=== PATIENT | male | born 1945 | race Caucasian/White ===

== ENCOUNTER 2020-09-27 11:01 | Emergency (ER) | payer OTHER, MEDICARE, SELFPAY ==
[2020-09-27 11:02] VITALS: BP 160/123; PULSE 102; RESP 18; TEMP 36.5; O2SAT 97; BMI 31.9
--- NOTE | 2020-09-27 11:38 | CT_ITS ---
STUDY: CT ABDOMEN AND PELVIS WITH CONTRAST REASON FOR EXAM: Male, 75 years old. Abdominal pain . One week history of left groin pain. -- IV PO Contrast RADIATION DOSAGE (If Supplied By Facility): CTDIvol = ( 16.82 ) mGy, DLP = ( 1462.75 ) mGycm TECHNIQUE: Transaxial images were obtained from the dome of the diaphragm to the symphysis pubis with oral contrast. Oral and amp;amp; IV Gastrografin and amp;amp; 100mL Isovue-300 was administered. Sagittal and coronal images were reconstructed. Individualized dose optimization techniques were used for this CT. COMPARISON: None. FINDINGS: Calcified right pleural plaques. There is evidence of a 4.9 cm x 3.5 cm soft tissue mass in the right lower lobe with faint calcifications within it. Mild degree of Coronary artery calcification. There is decreased attenuation of the liver consistent with steatosis. Normal gallbladder and extrahepatic biliary system. Normal spleen. Normal pancreas. Normal bilateral adrenal glands. Normal right kidney. Normal left kidney. Mild degree of nonspecific bilateral perinephric stranding. Normal visualized stomach. Normal small intestine. Normal colon. The appendix is visualized and appears normal. There is diffuse atherosclerotic calcification of the abdominal aorta and its major visceral branches, without a demonstrated aneurysm. Normal inferior vena cava. Normal retroperitoneum. The urinary bladder is distended. There is evidence of a 3.1 cm x 1.9 cm diverticulum along the inferior left side of the urinary bladder. There is a small umbilical hernia containing fat. Small bilateral inguinal hernias containing fat worse on the left side. Mild degree of disc space narrowing at the L5-S1 level. CT/Abdomen/Pelvis WITH Contrast IMPRESSION: Calcified right-sided pleural plaques along the diaphragmatic surface with the findings suggestive of a 4.9 cm x 3.5 cm soft tissue mass in the right lower lobe with calcifications within. Fatty infiltration of the liver. Distended urinary bladder. Left-sided bladder diverticulum measuring 3.1 cm x 1.9 cm. Bilateral inguinal hernias containing fat more prominent on the left side. Electronically Signed: Taran Rodriguez MD at 13:40 EDT , Service support ,
--- NOTE | 2020-09-27 11:39 | ED.RN ---
in today for swelling lt testicle over last week. denies any dysuria or pain.
[2020-09-27 11:59] LABS: Absolute Lymphocyte Count 1.22 X10^3/uL (0.83-4.51); Absolute Neutrophil Count 5.1 X10^3/uL (2.0-7.7); Basophil# 0.04 X10^3/uL; Basophil% 0.6 % (0-1); Eosinophil# 0.11 X10^3/uL; Eosinophils% 1.5 % (0-5); Hematocrit 44.9 % (40-54); Hemoglobin 14.6 g/dL (13.0-16.5); Lymphocyte # 1.22 X10^3/ul (4.0); Mean Corp Hgb Conc 32.5 g/dL (32-36); Mean Corpuscular Hgb 30.5 pg (27.0-32.0); Mean Corpuscular Volume 93.7 fL (80-94); Mean Platelet Vol. 9.2 fl (6.2-12.0); Monocyte# 0.67 X10^3/uL; Monocyte% 9.3 % (0-10); NRBC Flagged by Analyzer 0 % (0-5); Neutrophil # 5.11 X10^3/uL (2.7-7.7); Neutrophil % 71.2 % (47-70); Platelet Count 243 K/mm3 (150-450); RBC Distribution Width CV 12.3 % (11.6-14.6); RBC Distribution Width SD 42.5 fl (35.1-43.9); Red Blood Count 4.79 M/mm3 (4.6-6.2); White Blood Count 7.2 K/mm3 (4.4-11.0)
[2020-09-27 12:03] LABS: ALB/GLOB Ratio 1.1 RATIO (0.9-2.4); AST(SGOT) 13 U/L (15-37); Alanine Aminotransfer ALT/SGPT 25 U/L (16-61); Albumin, Serum 3.9 g/dL (3.2-5.0); Alkaline Phosphatase 80 U/L (45-117); Anion Gap 6 (5-15); BUN 21 mg/dL (7-18); BUN/Creat Ratio 20.4 RATIO (10-20); Chloride 102 mmol/L (98-107); Creatinine, Serum 1.03 mg/dL (0.70-1.30); EST Glomerular Filtration Rate 75 mL/min (>60); Est Glom Filt Rate - Afr Amer 91 mL/min (>60); Estimated Creatinine Clearance 57.94 ml/min; Globulin 3.5 g/dL (2.2-4.2); Glucose 106 mg/dL (74-106); Potassium 3.8 mmol/L (3.5-5.1); Protein, Total 7.4 g/dL (6.4-8.2); Sodium Level 137 mmol/L (136-145)
--- NOTE | 2020-09-27 12:27 | ED.DCSUM_ITS ---
- ER Visit Summary Date of Service: 09/27/20 Chief Complaint: Left inguinal pain History of Present Illness: The patient is a 75 M who presents with pain in his left inguinal area that began yesterday. Patient noted increasing swelling. Patient states he has been told he has a left inguinal hernia in the past. Patient states the swelling became worse last night. Patient states nothing seems to make it worse. Patient states nothing seems to help with it. Patient states his pain is minimal at the present time. Patient denies any fevers or chills. Patient denies any nausea or vomiting. Patient denies any dysuria or hematuria. Physical Examination: Vital signs are stable. Patient is afebrile. Patient is in no acute distress. Oral mucosa is pink and moist. Neck is supple. Trachea is midline. There is no JVD. Heart was regular rate and rhythm. Lungs are clear and equal bilaterally. Abdomen is soft. Bowel sounds are normal. There is no tenderness. There is no rebound or guarding noted. Genitourinary exam shows some mild left inguinal tenderness. I did not appreciate a hernia. There are no other masses noted. Cranial nerves II through XII are intact. There are no focal motor or sensory deficits noted. Test Results: CBC and comprehensive metabolic profile were within normal limits. Urinalysis was normal. CT scan of the abdomen pelvis was obtained. There were bilateral inguinal hernias containing fat. There is no obstruction. There is no acute process. This was interpreted by the radiologist and reviewed by myself. Emergency Department Course and Treatment: Patient is feeling better on reevaluation. Patient was instructed use Tylenol or ibuprofen as needed for pain. Patient was instructed to follow-up with his primary care physician in 5 to 7 days. Patient understood and was agreeable with the plan. All questions were answered. Disposition: Discharge home Impression: Inguinal hernia This note was generated with PositiveID dictation software. It may contain incorrect words, spelling, and punctuation that were not noted in review of the chart prior to signing ED Disposition - Plan for ED Patient: Disposition: Home or Assisted Living Diagnosis: Left inguinal hernia Instructions: ED Hernia (Adult) Referrals: [facility] [Primary Care Provider] - 5-7 Days
[2020-09-27 12:33] LABS: Bacteria 0 SEEN /hpf (None Seen); Mucous, Urine 0 SEEN /hpf (<or=2+); Red Blood Cells-Urine 0 SEEN /hpf (0-5); Squamous Epithelial Cells - UA 0 SEEN /hpf (0-5); White Blood Cells 0 SEEN /hpf (0-5)
[2020-09-27 12:35] LABS: Color, Urine Yellow (Yellow); Glucose, Dipstick Normal (Normal); Ketone-Dipstick Negative (Negative); Leukocyte Esterase-Dipstick Negative /ul (Negative); Nitrite-Dipstick Negative (Negative); Occult Blood-Urine Negative /ul (Negative); Protein-Dipstick Negative (Negative); Urine Bilirubin Dipstick Negative (Negative); Urine Clarity Clear (Clear); Urine Urobilinogen Normal (Normal)
[2020-09-27 13:26] VITALS: BP 149/74; PULSE 74; RESP 18; O2SAT 96
== END 2020-09-27 14:28 | disposition home or self-care (01) ==
PROVIDERS: Emergency Provider Emergency Medicine
DX: K40.90 Unilateral inguinal hernia, without obstruction or gangrene, not specified as recurrent (principal)
CPT/HCPCS: 74177; 80053; 81001; 85025; 99283; Q9967; A4216

== ENCOUNTER → 2020-10-31 14:41 | Outpatient (CLI) | payer OTHER, MEDICARE, SELFPAY ==
--- NOTE | 2020-10-31 14:44 | CT_ITS ---
STUDY: CT CHEST WITHOUT CONTRAST REASON FOR EXAM: Male, 75 years old. ABN FINDINGS NOTED ON CT ABD 08/2020 RADIATION DOSAGE (If Supplied By Facility): CTDIvol = ( 17.80 ) mGy, DLP = ( 595.97 ) mGycm TECHNIQUE: Transaxial imaging was performed without the administration of intravenous contrast material. Individualized dose optimization techniques were used for this CT. COMPARISON: None. FINDINGS: The lungs are normal. Extensive nodular Calcified pleural plaque bilaterally. Calcific coronary artery disease. No pericardial effusion. Normal mediastinum. Normal hilar regions. Normal unenhanced pulmonary arteries. Normal aorta arch and descending thoracic aorta. Mild dextroconvex scoliosis. There is no demonstrated abnormality of the visualized upper abdomen. CT/Chest without Contrast IMPRESSION: Extensive bilateral calcified pleural plaques. Coronary artery disease. No acute disease. Electronically Signed: Homer Connell MD at 17:00 EDT , Service support ,
== END ==
DX: R93.5 Abnormal findings on diagnostic imaging of other abdominal regions, including retroperitoneum (principal)
CPT/HCPCS: 71250

== ENCOUNTER 2022-02-08 09:30 | Day surgery (SDC) | payer OTHER, SELFPAY ==
[2022-02-08 10:08] VITALS: BP 159/78; PULSE 75; RESP 16; TEMP 36.7; O2SAT 96; BMI 30.8
[2022-02-08] MEDS: Lactated Ringers 1,000 ML 15 ML IV (10:12)
--- NOTE | 2022-02-08 10:56 | PCM.HP.BLA ---
History and Physical Date of Service:? 11/21/21 MR#: [id number] Acct: [id number] Name:YESY CRUZ Rep #: [id number] : 1945 ? ? Provider: Dr. Tyler Bowman MD Age/Sex:? 76/M ? ? Location: [facility] Status: Signed Intake Vital Signs ? 11/21/2212:44 Height 5 ft 7 in Weight: 211 lb 6 oz BMI 33.0 BP 162/77 H Blood Pressure Location Rt brachial Position Sitting Respiration 17 Pulse 77 Pulse Source Monitor Temp 98.7 F Temp Source Temporal Pulse Oximetry (%) 96 Oxygen Delivery Method room air Intake Visit Reasons:?COLONOSCOPY Chief Complaint: colonoscopy Bicycle Mechanic Required: No Is patient in pain?: No Allergies aspirin Allergy (Verified 11/21/21 13:45) Rashchlorhexidine [From Hibiclens] Adverse Reaction (Verified 11/21/21 13:45) Rashoxycodone [From OxyContin] Adverse Reaction (Verified 11/21/21 13:45) Other Medications tamsulosin 0.4 mg PO DAILY 03/29/16 [History Confirmed 11/21/21] trazodone 200 mg PO QHS 09/27/20 [History Confirmed 11/21/21] amlodipine 5 mg tablet 5 mg PO BID 11/21/21 [History Confirmed 11/21/21] fluticasone propionate 50 mcg/actuation nasal spray,suspension 1 spray INTRANASAL DAILY 11/21/21 [History Confirmed 11/21/21] multivitamin 1 tab PO DAILY 11/21/21 [History Confirmed 11/21/21] PFSH Surgical History?(Updated 11/21/21 @ 13:43 by Saturday) History of left knee replacement History of left knee surgery Family History?(Updated 11/21/21 @ 13:44 by Saturday) Sister Cancer ?? ? leukemiaUncle Cancer ?? ? prostateUnknown CVA (cerebral vascular accident) ?? ? nephew Social History?(Updated 11/21/21 @ 13:44 by Emili Saturday) Smoking Status:? Never smoker alcohol intake:? never substance use type:? does not use HPI HPI HPI: YESY CORDOBA is a 76 M who presents to the office today for need to schedule screening colonoscopy.? They are referred for surgical consultation from the [place] system.? Patient has not had prior colonoscopy.? Patient states he had been asked so many times about a colonoscopy, he finally decided to agree to an exam.? Patient has no personal history of diverticulitis, inflammatory bowel disease, or colon cancer. They describe their bowel habits as normal.? They have approximately 1 (usually soft) bowel movement per day and spend just a few minutes on the toilet without significant straining.? They have not noticed recent bleeding or dark stools.? They do not regularly take fiber supplements.? Patient has no family history of inflammatory bowel disease, diverticulitis, or colon cancer.? ? ? The patient's weight is not stable as he rather proudly reports that he has lost 17 pounds through intentional dietary restriction. Patient describes some recent left lower quadrant pain, but states this was self-limited.? He suspects that this represented more of a pulled muscle.? He has been recently restoring a old vehicle and states that he is now using muscles that he has not used in many years. The patient is not prescribed anticoagulants/blood thinners. Relevant prior abdominal surgical history includes: No prior abdominal surgeries Further concerning the GI tract, patient states he did have an EGD 2 to 3 years ago and work-up for some allergy symptoms.? He was told at that time that everything was normal.? He denies any history of reflux or heartburn.? He confirms some occasional difficulty with swallowing?which she states is specifically related to sticky rice that will occasionally get stuck from eating too fast.? Otherwise he is without swallowing complaint. ROS General General: Yes weight change and fatigue; No appetite, colon cancer, breast cancer or weakness HEENT HEENT: No difficulty swallowing, eye injury, eye surgery, swollen glands or hoarseness Endo Endocrine: No thyroid disease, diabetes mellitus, thyroid cancer, Hair loss, heat intolerance or cold intolerance Skin Skin: No rash or changing moles Musc Musculoskeletal: Yes back problems and arthritis; No rheumatoid arthritis, gout or joint pain Cardio Cardiovascular: Yes high blood pressure; No murmur, pacemaker, heart disease, atrial fibrillation, heart attack, heart stent, palpitations, shortness of breat with exertion or chest pain Psych Psychiatric: Yes depression; No anxiety or hearing voices Resp Respiratory: No shortness of breath, Yes sleep apnea, No cough, No COPD, No asthma, No emphysema and No wheezing Gastro Gastrointestinal: Yes abdominal pain, No nausea or vomiting, No diarrhea, No constipation, No blood in stool, No acid reflux, No hemorrhoids, No ulcers, No gallbladder problem and No black,tarry stools Additional Details: LLQ two weeks ago after working on a car, states has resolved Fredy Hematologic: No blood thinners, No blood disorders, No bleeding, No anemia and No blood clots Neuro Neurologic: No system reviewed and no additional complaints, except as documented, No as per HPI, No abnormal gait, No abnormal hearing, No abnormal movements, No abnormal speech, No behavioral changes, No burning sensations, No confusion, No convulsions, No disequilibrium, No dizziness, No localized weakness, No frequent falls, No headache(s), No lack of coordination, No loss of vision, No memory loss, No numbness, No other visual disturbances, No radicular pain, No restless legs, No sensory deficit, No syncope, Yes tingling (bilateral feet), No tremor(s), No weakness and No other Exam Const General: cooperative, healthy appearing, comfortable and no acute distress Orientation: alert, awake and oriented x3 Resp Effort & Inspection: normal respiratory effort Auscultation: no rales, no rhonchi and no wheezes Cardio Rate: regular rate Rhythm: regular rhythm Heart Sounds: S1 normal and S2 normal GI Other: Nondistended, no scars.? Soft, nontender to palpation x4 quadrants.? Umbilical hernia visible and palpable with estimated 1.5 cm fascial defect.? This is nontender with palpation as well Assessment and Plan Assessment and Plan (1) Screening for colon cancer: ?Status:?Acute ?Comment: This is a 76-year-old male who presents for screening colonoscopy consultation.? He denies any concerning features of his regular bowel movements.? He denies any family history of colon cancer.? He simply seeks evaluation given repeated advice to consider a scope.? The expectations around the procedure and pre-? procedure colon were reviewed. ?Plan - Dr. Tyler Bowman MD: Plan will be to complete colonoscopy sometime next month (patient states that he is very limited availability this month) under local [facility].? Pre-procedure prep discussed and paper instructions provided.? Patient is also made aware that he will need to have a commercial driver's license driver with him the day of the procedure. I have re-examined the patient. There are no clinical changes since date of exam. Patient confirms successful prep for this colonoscopy and that his output is now clear. He denies any questions, but states that he is a bit nervous for the procedure. We addressed this directly and he states that he is ready to proceed as scheduled.
[2022-02-08 11:58] VITALS: BP 145/81; BP 159/78; PULSE 78; RESP 16; TEMP 36.5; O2SAT 100
--- NOTE | 2022-02-08 12:00 | OP.COLON_ITS ---
Patient Name: Elvin Wynn Procedure Date: 02/08/2022 11:00 AM Date of : 1945 Age: 76 Procedure: Colonoscopy Indications: Screening for colorectal malignant neoplasm Providers: Tyler Bowman MD Medicines: Monitored Anesthesia Care, See the Anesthesia note for documentation of the administered medications Patient Profile: Last Colonoscopy: none. The patient's first colonoscopy is today. Complications: No immediate complications. Estimated blood loss: None. Procedure: Pre-Anesthesia Assessment: - The heart rate, respiratory rate, oxygen saturations, blood pressure, adequacy of pulmonary ventilation, and response to care were monitored throughout the procedure. After I obtained informed consent, the scope was passed under direct vision. Throughout the procedure, the patient's blood pressure, pulse, and oxygen saturations were monitored continuously. The pediatric colonoscope was introduced through the anus and advanced to the cecum, identified by appendiceal orifice and ileocecal valve. The colonoscopy was technically difficult and complex. Successful completion of the procedure was aided by using manual pressure and withdrawing and reinserting the scope. The patient tolerated the procedure well. The quality of the bowel preparation was adequate to identify polyps. Scope In: 11:04:51 AM Scope Withdrawal Time 0 hours 38 minutes 45 seconds Scope Out: 11:52:42 AM Total Procedure Duration Time 0 hours 47 minutes 51 seconds Findings: The entire examined colon appeared normal on direct and retroflexion views. Impression: - The entire examined colon is normal on direct and retroflexion views. - No specimens collected. Recommendation: - Discharge patient to home (via wheelchair). - Resume regular diet today. - Continue present medications. - The findings and recommendations were discussed with the designated responsible adult. - No repeat colonoscopy due to age. Procedure Code(s): --- Professional --- G0121, Colorectal cancer screening; colonoscopy on individual not meeting criteria for high risk Diagnosis Code(s): --- Professional --- Z12.11, Encounter for screening for malignant neoplasm of colon CPT copyright 2017 [employer]. All rights reserved. The codes documented in this report are preliminary and upon box closing machine operator review may be revised to meet current compliance requirements. Tyler Bowman MD 02/08/2022 12:00:21 PM This report has been signed electronically. Number of Addenda: 0 Note Initiated On: 02/08/2022 11:00 AM
--- NOTE | 2022-02-08 12:00 | OP.CCLET_ITS ---
02/08/2022 [facility] Re : Colonoscopy procedure for Elvin [facility] This procedure was performed on January. My impressions and recommendations are as follows: Impressions : - The entire examined colon is normal on direct and retroflexion views. - No specimens collected. Recommendations : - Discharge patient to home (via wheelchair). - Resume regular diet today. - Continue present medications. - The findings and recommendations were discussed with the designated responsible adult. - No repeat colonoscopy due to age. My findings are described in the full procedure note, which is enclosed. If I can be of further assistance, please feel free to contact me at Doctor phone number(s): , Work: . Sincerely, Tyler Bowman MD 02/08/2022 12:00:21 PM This report has been signed electronically.
[2022-02-08 12:05] VITALS: BP 146/82; BP 159/78; PULSE 77; RESP 16; O2SAT 100
[2022-02-08 12:10] VITALS: BP 146/72; BP 159/78; PULSE 74; RESP 16; O2SAT 100
[2022-02-08 12:14] VITALS: BP 145/83; BP 159/78; PULSE 63; RESP 16; TEMP 36.5; O2SAT 100
[2022-02-08 12:26] VITALS: BP 159/78
== END 2022-02-08 12:38 | disposition home or self-care (01) ==
LOC: EN 09:31 → AC 09:41
PROVIDERS: Visit Provider Surgery
PROC: 0DJD8ZZ Inspection of Lower Intestinal Tract, Via Natural or Artificial Opening Endoscopic (ICD-10-PCS; CPT 45378; principal; 2022-02-08 10:55)
DX: Z12.11 Encounter for screening for malignant neoplasm of colon (principal); I10 Essential (primary) hypertension; G47.30 Sleep apnea, unspecified; Z79.899 Other long term (current) drug therapy; Z96.652 Presence of left artificial knee joint
CPT/HCPCS: G0121; J7120; J2405

== ENCOUNTER 2022-05-26 18:18 | Emergency (ER) | payer OTHER, SELFPAY ==
[2022-05-26 18:19] VITALS: BP 154/85; PULSE 99; RESP 17; TEMP 38.4; O2SAT 96; BMI 32.2
--- NOTE | 2022-05-26 19:54 | ED.RN ---
PT LWBS AT 1953.
== END 2022-05-26 19:54 | disposition left against medical advice (07) ==
LOC: ED 19:57
DX: Z53.21 Procedure and treatment not carried out due to patient leaving prior to being seen by health care provider (principal)

== ENCOUNTER 2024-08-04 14:11 | Emergency (ER) | payer OTHER, SELFPAY ==
[2024-08-04 14:12] VITALS: BP 154/82; PULSE 89; RESP 18; TEMP 37.4; O2SAT 92; BMI 32.2
[2024-08-04 15:15] VITALS: BP 147/87; PULSE 69; RESP 18; TEMP 36.8; O2SAT 98
[2024-08-04 15:23] VITALS: O2SAT 97
--- NOTE | 2024-08-04 15:51 | ED.VIS.DYS ---
HPI History of Present Illness Chief Complaint: Cough Narrative Narrative: Chief complaint and HPI: Cough and flulike symptoms. 78-year-old male with past medical history of HTN, KEITH presents for evaluation of cough and flulike symptoms. Patient endorses fever, cough, headache, nausea, nasal congestion, and intermittent lightheadedness. Onset of symptoms Saturday. Significant other has similar symptoms but is improving. Patient endorses decreased p.o. intake since start of symptoms. Denies any chest pain, shortness of breath, abdominal pain, vomiting, diarrhea. Review of systems: See HPI Medications: As listed on the chart Allergies: As listed on the chart PFSH: Per chart Vital signs: As listed on the chart. Reviewed. Physical exam: Gen: A&O x3, NAD Head: Normocephalic, atraumatic Eyes: No sclera icterus, conjunctiva clear, PERRL, EOMI ENT: TMs clear BL, mildly dry mucous membranes, posterior oropharynx unremarkable, uvula midline, tonsils not enlarged, no tonsillar exudates Neck: Trachea midline, No JVD, Full ROM, No meningismus CV: RRR, no murmurs, no peripheral edema Resp: Lungs CTA BL, no w/r/c, + dry cough GI: Abd soft, non-distended, non-tender, no r/r/g Musc: Full ROM, no deformity Skin: Warm, dry, no rash Neuro: Alert, oriented, grossly intact, sensation intact Psych: Cooperative, appropriate mood and affect [facility] Medical History (Updated 08/04/24 @ 17:[address] Anam Bower, DO) Wears glasses Loose, teeth PTSD (post-traumatic stress disorder) Depression Arthritis Restless legs Back pain Sleep apnea Hypertension Home Medications ?Medication ?Instructions ?Recorded ?Last Taken ?Type tamsulosin 0.4 mg capsule 0.4 mg PO DAILY 03/29/16 Unknown History trazodone 100 mg tablet 200 mg PO QHS 09/27/20 Unknown History amlodipine 5 mg tablet 5 mg PO BID 11/21/21 Unknown History fluticasone propionate 50 1 spray intranasal DAILY 11/21/21 Unknown History mcg/actuation nasal spray,suspension (Allergy Relief (fluticasone)) multivitamin 1 tab PO DAILY 11/21/21 Unknown History benzonatate 100 mg capsule 100 mg PO TID PRN cough 5 days #15 08/04/24 Unknown Rx caps Allergy/AdvReac Type Severity Reaction Status Date / Time aspirin Allergy Rash Verified 08/04/24 14:12 chlorhexidine (From AdvReac Rash Verified 08/04/24 14:12 Hibiclens) oxycodone (From OxyContin) AdvReac Other Verified 08/04/24 14:12 Family History (Updated 11/21/21 @ 13:44 by Emili Saturday) Sister Cancer leukemia Uncle Cancer prostate Unknown CVA (cerebral vascular accident) nephew Surgical History History of left knee surgery History of left knee replacement Social History (Updated 11/21/21 @ 13:44 by Emili Saturday) Smoking Status: Never smoker alcohol intake: never substance use type: does not use EXAM Physical Exam Const Vital Signs: 08/04/24 14:12 08/04/24 15:15 08/04/24 15:23 Temperature 99.4 F H 98.3 F Temperature Source Oral Oral Pulse Rate 89 69 Respiratory Rate 18 18 Respiratory Effort Normal Respiratory Depth Normal Respiratory Pattern Normal Blood Pressure 154/82 H 147/87 H Blood Pressure Mean 106 107 Pulse Ox 92 98 Oxygen Delivery Method Room Air Room Air Room Air 08/04/24 16:11 08/04/24 17:43 Temperature 98.2 F Temperature Source Pulse Rate 68 67 Respiratory Rate 18 18 Respiratory Effort Respiratory Depth Respiratory Pattern Blood Pressure 141/89 H Blood Pressure Mean 106 Pulse Ox 97 99 Oxygen Delivery Method MDM MDM MDM Narrative Medical decision making narrative: 78-year-old male with past medical history of HTN, KEITH presents for evaluation of cough and flulike symptoms. Differential diagnosis includes but is not limited to influenza, COVID-19, RSV, other viral illness, pneumonia, electrolyte abnormality. NS bolus, Zofran, Tylenol ordered for symptoms. Laboratory workup ordered including chest x-ray. CBC without leukocytosis or anemia. BMP without any significant electrolyte abnormality or KIP. Patient caught positive for COVID-19 infection. Chest x-ray was personally reviewed by in, ED physician. Chest x-ray consistent with COVID-19 infection. Patient was updated of all his results. His vitals have remained stable. His temperature is improved with Tylenol. He is not hypoxic or in any respiratory distress. Patient was given education on COVID-19. OTC medications for symptom control. Follow-up with PCP. Return precautions explained. Impression: 1. COVID-19 infection Lab Data Labs: Laboratory Results - last 24 hr 08/04/24 15:55 WBC 9.1 RBC 4.54 L Hgb 13.7 Hct 42.4 MCV 93.4 MCH 30.2 MCHC 32.3 RDW Std Deviation 43.4 RDW Coeff of Jemma 12.7 Plt Count 224 MPV 9.1 Immature Gran % (Auto) 0.600 Neut % (Auto) 73.1 H Lymph % (Auto) 8.0 L [place] % (Auto) 17.8 H Eos % (Auto) 0.2 Baso % (Auto) 0.3 Absolute Neuts (auto) 6.6 Absolute Lymphs (auto) 0.72 L Nucleated RBC % 0 Differential Comment SCANNED Sodium 135 L Potassium 3.7 Chloride 100 Carbon Dioxide 30.0 Anion Gap 5 BUN 18 Creatinine 1.02 Estim Creat Clear Calc 65.04 Est GFR (MDRD) Af Amer 91 Est GFR (MDRD) Non-Af 75 BUN/Creatinine Ratio 17.6 Glucose 107 H Calcium 8.9 Radiography Diagnostic Testing: Clinical Impression(s) from Imaging Studies Chest X-Ray 08/04/24 16:05 IMPRESSION: Bibasilar infiltrate versus atelectasis. Calcifications which may represent prior spaces exposure. The lungs are hyperaerated which may represent COPD. Reading Location: [facility] Discharge Plan Triage Chief Complaint: Cough ED Provider: Anam Bower Dx/Rx/DC Orders Clinical Impression: COVID-19 Instructions: Coronavirus Disease 2019 (COVID-19): Caring for Yourself or Others, COVID-19 and the Flu: What's the Difference? Prescriptions: New benzonatate 100 mg capsule 100 mg PO TID PRN (Reason: cough) 5 Days Qty: 15 0RF No Action amlodipine 5 mg tablet 5 mg PO BID fluticasone propionate [Allergy Relief (fluticasone)] 50 mcg/actuation spray,suspension 1 spray intranasal DAILY Rx Instructions: administer into each nostril multivitamin Tablet 1 tab PO DAILY tamsulosin 0.4 MG capsule 0.4 mg PO DAILY Patient Comments: prostate/urine flow trazodone 100 MG tablet 200 mg PO QHS Primary Care Provider: [facility] Referrals: [facility] [Primary Care Provider] - 3-5 Days Activity Restrictions/Additional Instructions: Return back to the ED if symptoms change or worsen. Print Language: Tamazight Disposition Disposition: Home, Self Care Discharge Date/Time: 08/04/24 17:44
[2024-08-04] MEDS: Ondansetron 4 MG/2 ML Vial IV (16:01)
[2024-08-04] MEDS: Acetaminophen 500 MG Tablet 1000 MG PO (16:01)
[2024-08-04] MEDS: 0.9% Normal Saline (1000mL) 1,000 ML 1000 ML IV (16:01)
--- NOTE | 2024-08-04 16:05 | RAD_ITS ---
PROCEDURE: CHEST PA AND LATERAL REASON FOR EXAM: Cough, fever, headache. TECHNIQUE: Two views of the chest. COMPARISON: None. FINDINGS: The cardiac and mediastinal contours are normal. Calcifications overlie the chest may represent prior asbestos exposure. The lungs are hyperaerated but clear. Mild ill-defined opacity overlying the lung bases which may represent infiltrate or atelectasis. RAD/Chest PA and Lateral IMPRESSION: Bibasilar infiltrate versus atelectasis. Calcifications which may represent prior spaces exposure. The lungs are hyperaerated which may represent COPD. Reading Location: [id number]
[2024-08-04 16:07] LABS: Absolute Lymphocyte Count 0.72 X10^3/uL (0.83-4.51); Absolute Neutrophil Count 6.6 X10^3/uL (2.0-7.7); Basophil# 0.03 X10^3/uL; Basophil% 0.3 % (0-1); Eosinophil# 0.02 X10^3/uL; Eosinophils% 0.2 % (0-5); Hematocrit 42.4 % (40-54); Hemoglobin 13.7 g/dL (13.0-16.5); Lymphocyte # 0.72 X10^3/ul (0.83-4.51); Mean Corp Hgb Conc 32.3 g/dL (32-36); Mean Corpuscular Hgb 30.2 pg (27.0-32.0); Mean Corpuscular Volume 93.4 fL (80-94); Mean Platelet Vol. 9.1 fl (6.2-12.0); Monocyte# 1.61 X10^3/uL; Monocyte% 17.8 % (0-10); NRBC Flagged by Analyzer 0 % (0-5); Neutrophil # 6.62 X10^3/uL (2.7-7.7); Neutrophil % 73.1 % (47-70); POSITIVE DIFFERENTIAL YES; Platelet Count 224 K/mm3 (150-450); RBC Distribution Width CV 12.7 % (11.6-14.6); RBC Distribution Width SD 43.4 fl (35.1-43.9); Red Blood Count 4.54 M/mm3 (4.6-6.2); White Blood Count 9.1 K/mm3 (4.4-11.0)
[2024-08-04 16:09] LABS: Differential Indicated SCAN CRITERIA MET
[2024-08-04 16:11] VITALS: PULSE 68; RESP 18; O2SAT 97
[2024-08-04 16:21] LABS: Anion Gap 5 (5-15); BUN 18 mg/dL (7-18); BUN/Creat Ratio 17.6 RATIO (10-20); Calcium,Total 8.9 mg/dL (8.5-10.1); Chloride 100 mmol/L (98-107); Creatinine, Serum 1.02 mg/dL (0.70-1.30); EST Glomerular Filtration Rate 75 mL/min (>60); Est Glom Filt Rate - Afr Amer 91 mL/min (>60); Estimated Creatinine Clearance 65.04 ml/min; Glucose 107 mg/dL (74-106); Potassium 3.7 mmol/L (3.5-5.1); Sodium Level 135 mmol/L (136-145)
[2024-08-04 16:41] LABS: Differential Comment SCANNED
[2024-08-04 17:43] VITALS: BP 141/89; PULSE 67; RESP 18; TEMP 36.8; O2SAT 99
== END 2024-08-04 17:44 | disposition home or self-care (01) ==
PROVIDERS: Emergency Provider Surgery; Visit Provider Surgery
DX: U07.1 COVID-19 (principal); I10 Essential (primary) hypertension; R42 Dizziness and giddiness; G47.33 Obstructive sleep apnea (adult) (pediatric); Z79.899 Other long term (current) drug therapy
CPT/HCPCS: 71046; 80048; 85025; 87631; 96361; 96374; 99284; A4216; J2405

== ENCOUNTER 2025-04-04 12:22 | Emergency (ER) | payer OTHER, SELFPAY ==
[2025-04-04 12:23] VITALS: BP 145/79; PULSE 96; RESP 18; TEMP 36.6; O2SAT 96; BMI 32.4
--- OUTSIDE RECORDS SUMMARY | 2025-04-04 13:00 | XMS RPT_ITS | CCD ---
Author Organization [facility] Care Team Providers Care Sql Analyst Name Role Phone MATHEUS MONZON (SENIOR ENVIRONMENTAL PRACTICE LEADER) Unavailable Unavailable STEPH RUBIN Unavailable [place] Primary Care Provider [place] Referring Provider Unavailable Dr. Tyler Bowman Attending Provider Dr. Tyler Bowman Other Provider [phone] [place] [address] Primary Care Unavailable Anam Bower Attending [facility] Allergies Allergy Classification Reported Allergen(s) Allergy Type Date of Onset Reaction(s) Facility (2 sources) acetaminophen / oxyCODONE; Translations: [OXYCODONE-ACETAMI NOPHEN] Drug Allergy 12-25-2016 [facility] Repository (4 sources) aspirin; Translations: [ASPIRIN] Drug Allergy 12-25-2016 [facility] Repository (2 sources) codeine; Translations: [CODEINE] Drug Allergy 12-25-2016 [facility] Repository (2 sources) oxyCODONE; Translations: [OXYCODONE HCL] Drug Allergy 12-25-2016 [facility] Repository (1 source) Chlorhexidine Drug Allergy 05-26-2022 [facility] Work Phone: (1 source) oxyCODONE Drug Allergy 05-26-2022 Other [facility] Work Phone: (1 source) Chlorhexidine Drug Allergy 08-04-2024 [facility] Repository (1 source) oxyCODONE Drug Allergy 08-04-2024 [facility] Repository Medications Current Medications Medication Drug Class(es) Dates Sig (Normalized) Sig (Original) amLODIPine 5 mg oral tablet (1 source) Dihydropyridine Calcium Channel Nikita Start: 11-21-2021 take 5 mg by mouth twice daily Amlodipine Active 5 MG PO TWICE A DAY November 20, 2021 11:00pm fluticasone propionate 0.05 mg/actuat metered dose nasal spray (1 source) Corticosteroid Start: 11-21-2021 take 1 spray(s) nasal route once daily Fluticasone Propionate (Allergy Relief (Fluticasone)) 50 mcg/actuation spray,suspension Active 1 SPRAY INTRANASAL DAILY November 20, 2021 11:00pm administer into each nostril Multivitamin preparation (1 source) Start: 11-21-2021 take 1 tablet by mouth once daily Multivitamin Active 1 TABLET PO DAILY November 20, 2021 11:00pm tamsulosin hydrochloride 0.4 mg oral capsule (1 source) alpha-Adrenergic Nikita Start: 03-29-2016 take 0.4 mg by mouth once daily Tamsulosin Active 0.4 MG PO DAILY March 28, 2016 11:00pm traZODone hydrochloride 100 mg oral tablet (1 source) Serotonin Reuptake Inhibitor Start: 09-27-2020 take 200 mg by mouth at bedtime Trazodone Active 200 MG PO AT BEDTIME September 26, 2020 11:00pm Completed/Discontinued Medications Medication Drug Class(es) Dates Sig (Normalized) Sig (Original) acetaminophen 325 mg / HYDROcodone bitartrate 5 mg oral tablet (1 source) Opioid Agonist Start: 03-29-2016 End: 04-11-2016 Hydrocodone-Acetam inophen Discontinued 1 EACH PO NEEDED March 28, 2016 11:00pm April 11, 2016 8:45am gabapentin 100 mg oral capsule (1 source) Anti-epileptic Agent Start: 09-27-2020 End: 11-21-2021 take 100 mg by mouth at bedtime Gabapentin Discontinued 100 MG PO AT BEDTIME September 26, 2020 11:00pm November 21, 2021 12:45pm lisinopril 40 mg oral tablet (1 source) Angiotensin Converting Enzyme Inhibitor Start: 05-25-2017 End: 11-21-2021 take 40 mg by mouth once daily Lisinopril Discontinued 40 MG PO DAILY May 25, 2017 12:00am November 21, 2021 12:45pm Problems Active Problems Problem Classification Problem Date Documented Date Episodic/Chronic Abdominal hernia (1 source) Left inguinal hernia ; Translations: [Unilateral inguinal hernia, without obstruction or gangrene, not specified as recurrent] Episodic Essential hypertension (1 source) Hypertensive disorder; Translations: [Essential (primary) hypertension] Chronic Mood disorders (1 source) Depressive disorder; Translations: [Depression] Chronic Osteoarthritis (2 sources) Bilateral primary osteoarthritis of knee; Translations: [Arthritis] Onset: 12-25-2016 Chronic Other nervous system disorders (1 source) Other chronic pain; Translations: [Other chronic pain] Onset: 12-25-2016 Chronic Other screening for suspected conditions (not mental disorders or infectious disease) (1 source) Patient encounter status; Translations: [Encounter for screening for malignant neoplasm of colon] Episodic Residual codes; unclassified (1 source) Sleep apnea; Translations: [Sleep apnea, unspecified] Chronic Unclassified (1 source) Cough, unspecified; Translations: [Cough, unspecified] Onset: 08-19-2024 Past or Other Problems Problem Classification Problem Date Documented Da te Episodic/Chronic Spondylosis; intervertebral disc disorders; other back problems (2 sources) Lumbago with sciatica, right side; Translations: [Lumbago with sciatica, left side] Onset: 12-25-2016 Episodic Results Test Name Value Interpretation Reference Range Facility Basic Metabolic Profile (BMP )on 08-04-2024 BUN/CRE 17.6 RATIO Normal 10-20 [facility] Comment on above: Performed By: #### L100.0100, L500.2500 #### [facility] [address] [place], [address] CA,Total 8.9 mg/dL Normal 8.5-10.1 [facility] Comment on above: Performed By: #### L100.0100, L500.2500 #### [facility] [address] [place], [address] Chloride [Moles/Vol] 100 mmol/L Normal 98-107 [facility] Comment on above: Performed By: #### L100.0100, L500.2500 #### [facility] [address] [place], [address] CO2 [Moles/Vol] 30.0 mmol/L Normal 21.0-32.0 [facility] Comment on above: Performed By: #### L100.0100, L500.2500 #### [facility] [address] [place], [address] Creatinine [Mass/Vol] 1.02 mg/dL Normal 0.70-1.30 [facility] Comment on above: Result Comment: The validity of the calc ulated GFR GFRAA in patients over 70 years has not been determined. Clinical correlation is essential. Performed By: #### L 100.0100, L500.2500 #### [facility] [address] [place], [address] ECRCL 65.04 ml/min Normal [facility] Comment on above: Performed By: #### L100.0100, L500.2500 #### [facility] [address] [place], [address] EST GFR - AA 91 mL/min Normal >60 [facility] Comment on above: Result Comment: GFR Renato c Performed By: #### L 100.0100, L500.2500 #### [facility] [address] [place], [address] GAP 5 Normal 5-15 [facility] Comment on above: Performed By: #### L100.0100, L500.2500 #### [facility] [address] [place], [address] GFR/1.73 sq M.predicted among non-blacks MDRD (S/P/Bld) [Vol rate/Area] 75 mL/min/{1.73_m2} Normal >60 [facility] Comment on above: Result Comment: Non- GFR Calc Performed By: #### L 100.0100, L500.2500 #### [facility] [address] [place], [address] Glucose [Mass/Vol] 107 mg/dL High 74-106 [facility] Comment on above: Result Comment: Fasting Glucose result f rom 100 to 125 mg/dL suggests IMPAIRED HOMEOSTASIS per A.D.A. criteria. Performed By: #### L 100.0100, L500.2500 #### [facility] [address] [place], [address] Potassium [Moles/Vol] 3.7 mmol/L Normal 3.5-5.1 [facility] Comment on above: Performed By: #### L100.0100, L500.2500 #### [facility] [address] [place], [address] Sodium [Moles/Vol] 135 mmol/L Low 136-145 [facility] Comment on above: Performed By: #### L100.0100, L500.2500 #### [facility] [address] [place], [address] Urea nitrogen [Mass/Vol] 18 mg/dL Normal 7-18 [facility] Comment on above: Performed By: #### L100.0100, L500.2500 #### [facility] [address] [place], [address] CBC W/Diff, Automatedon SMEAR COMMENT SCANNED Normal [facility] Comment on above: Result Comment: MONOCYTOSIS NOTED Performed By: #### L 100.0100, L500.2500 #### [facility] [address] [place], [address] Chest PA and Lateralon 08-04 Chest PA and Lateral [facility] Imaging Services [address] [place] [address] Chest PA and Lateral MR#: [id number] Acct: [id number] Name: ADALIDYESY Rep #: [id number] : 1945 M 78 From: Jame Silva MD PCP: [facility] Status: REG ER Study: Chest PA and Lateral Date of Exam: 08/04/24 Exam# [id number] Ordering Dr: Anam Bower DO PROCEDURE: CHEST PA AND LATERAL REASON FOR EXAM: Cough, fever, headache. TECHNIQUE: Two views of the chest. COMPARISON: None. FINDINGS: The cardiac and mediastinal contours are normal. Calcifications overlie the chest may represent prior asbestos exposure. The lungs are hyperaerated but clear. Mild ill-defined opacity overlying the lung bases which may represent infiltrate or atelectasis. RAD/Chest PA and Lateral IMPRESSION: Bibasilar infiltrate versus atelectasis. Calcifications which may represent prior spaces exposure. The lungs are hyperaerated which may represent COPD. Reading Location: [facility] CC: Dr. Anam Bower, ; [facility] Public Health Social Worker: Signed Normal [facility] Emergency Department Summary on 08-04-2024 Emergency Department Summary [facility] Medical Records Department [address] [place] [id number] Emergency Department Summary 08/04/24 MR#: [id number] Acct: [id number] Name: YESY WYNN Rep #: [id number] : 1945 78 From: Anam Bower DO PCP: [facility] Status:DEP ER Location: ED HPI History of Present Illness Chief Complaint: Cough Narrative Narrative: Chief complaint and HPI: Cough and flulike symptoms. 78-year-old male with past medical history of HTN, KEITH presents for evaluation of cough and flulike symptoms. Patient endorses fever, cough, headache, nausea, nasal congestion, and intermittent lightheadedness. Onset of symptoms Saturday. Significant other has similar symptoms but is improving. Patient endorses decreased p.o. intake since start of symptoms. Denies any chest pain, shortness of breath, abdominal pain, vomiting, diarrhea. Review of systems: See HPI Medications: As listed on the chart Allergies: As listed on the chart PFSH: Per chart Vital signs: As listed on the chart. Reviewed. Physical exam: Gen: A O x3, NAD Head: Normocephalic, atraumatic Eyes: No sclera icterus, conjunctiva clear, PERRL, EOMI ENT: TMs clear BL, mildly dry mucous membranes, posterior oropharynx unremarkable, uvula midline, tonsils not enlarged, no tonsillar exudates Neck: Trachea midline, No JVD, Full ROM, No meningismus CV: RRR, no murmurs, no peripheral edema Resp: Lungs CTA BL, no w/r/c, + dry cough GI: Abd soft, non-distended, non-tender, no r/r/g Musc: Full ROM, no deformity Skin: Warm, dry, no rash Neuro: Alert, oriented, grossly intact, sensation intact Psych: Cooperative, appropriate mood and affect [facility] Medical History (Updated 08/04/24 @ 17:[address] Anam Bower, DO) Wears glasses Loose, teeth PTSD (post-traumatic stress disorder) Depression Arthritis Restless legs Back pain Sleep apnea Hypertension Home Medications ???Medication ???Instructions ???Recorded ???Last Taken ???Type tamsulosin 0.4 mg capsule 0.4 mg PO DAILY 03/29/16 Unknown H istory trazodone 100 mg tablet 200 mg PO QHS 09/27/20 Unknown His tory amlodipine 5 mg tablet 5 mg PO BID 11/21/21 Unknown Histo ry fluticasone propionate 50 1 spray intranasal DAILY 11/21/21 Unknown History mcg/actuation nasal spray,suspension (Allergy Relief (fluticasone)) multivitamin 1 tab PO DAILY 11/21/21 Unknown Hi story benzonatate 100 mg capsule 100 mg PO TID PRN cough 5 days #15 08/04/24 Unknown Rx caps Allergy/AdvReac Type Severity Reaction Status Date / Time aspirin Allergy Rash Verified 08/04/24 14:12 chlorhexidine (From AdvReac Rash Verified 08/04/24 14:12 Hibiclens) oxycodone (From OxyContin) AdvReac Other Verified 08/04/24 14:12 Family History (Updated 11/21/21 @ 13:44 by Emili Saturday) Sister Cancer leukemia Uncle Cancer prostate Unknown CVA (cerebral vascular accident) nephew Surgical History History of left knee surgery History of left knee replacement Social History (Updated 11/21/21 @ 13:44 by Emili Saturday) Smoking Status: Never smoker alcohol intake: never substance use type: does not use EXAM Physical Exam Const Vital Signs: 08/04/24 14:12 08/04/24 15:15 08/04/24 15:23 Temperature 99.4 F H 98.3 F Temperature Source Oral Oral Pulse Rate 89 69 Respiratory Rate 18 18 Respiratory Effort Normal Respiratory Depth Normal Respiratory Pattern Normal Blood Pressure 154/82 H 147/87 H Blood Pressure Mean 106 107 Pulse Ox 92 98 Oxygen Delivery Method Room Air Room Air Room Air 08/04/24 16:11 08/04/24 17:43 Temperature 98.2 F Temperature Source Pulse Rate 68 67 Respiratory Rate 18 18 Respiratory Effort Respiratory Depth Respiratory Pattern Blood Pressure 141/89 H Blood Pressure Mean 106 Pulse Ox 97 99 Oxygen Delivery Method MDM MDM MDM Narrative Medical decision making narrative: 78-year-old male with past medical history of HTN, KEITH presents for evaluation of cough and flulike symptoms. Differential diagnosis includes but is not limited to influenza, COVID-19, RSV, other viral illness, pneumonia, electrolyte abnormality. NS bolus, Zofran, Tylenol ordered for symptoms. Laboratory workup ordered including chest x-ray. CBC without leukocytosis or anemia. BMP without any significant electrolyte abnormality or KIP. Patient caught positive for COVID-19 infection. Chest x-ray was personally reviewed by me, ED physician. Chest x-ray consistent with COVID-19 infection. Patient was updated of all his results. His vitals have remained stable. His temperature is improved with Tylenol. He is not hypoxic or in any respiratory distress. Patient was given education on COVID-1 (more content not included)... Normal [facility] M100.678on 08-04-2024 M100.678 SARS-CoV-2 (COVID 19 ) A Positive A INFLUENZA A Negative INFLUENZA B Negative RSV PCR Negative SARS-CoV-2 (COVID 19) Normal [facility] Comment on above: Performed By: #### M100.678 #### [facility] [address] [place], [address] Nichole 01-25-2017 MARTÍNEZ Telephone (PNMDNA) -------YESY WYNN ([id number]) 1945 MDate Time Provider Department01/25/17 STEPH RUBIN PNNA During your visit today, we recorded the following information about you:Allergies As of Date: 01/25/2017 Noted Allergy ReactionASPIRIN 12/25/2016 8 - GI UpsetCODEINE 12/25/2016 1 - Mental Status ChangeOXYCONTIN (OXYCODONE HCL) 12/25/2016 1 - Mental Status ChangePERCOCET (OXYCODONE-ACETAMINOPHEN) 8 - GI UpsetDate Reviewed: 01/21/2017Reviewed by: Missy Machado Ma - Fully AssessedReason for Visit: Received Outside Medical Records [4284] Cmt: ROSALIA PMRSReason For Visit History RecordedPrescriptions as of 01/25/2017 Sig: VICODIN ORAL Take by mouth as needed. TAMSULOSIN 0.4 MG CAPSULE Take 0.4 mg by mouth once santana* HYDROCHLOROTHIAZIDE ORAL Take 2 mg by mouth once daily. FUROSEMIDE 20 MG TABLET Take 20 mg by mouth twice santana*Problem List As Of Date 01/25/2017 Noted Resolved Thoracic spine pain [M54.6] INVALID FOR* Primary osteoarthritis of both knees [M17.0] INVALID FOR* Chronic low back pain with bilateral sciatica [*INVALID FOR* Status:Closed by SCAR FIGUEROA MA on 01/25/17 [facility] CNOVon 01-21-2017 CNOV Office Visit (PNMDNA) -------YESY WYNN ([id number]) 1945 MDate Time Provider Department01/21/17 7:40 AM MATHEUS MONZON ([facility]) PNMDNA During your visit today, we recorded the following information about you: Pulse Weight Height 66/minute 96.6 kg 1.702 mDawn Yesi Monzon CNP, CHARISSE 01/21/2017 8:48 AM SignedDATE: January 21, 2017Chief Complaint: Back SUBJECT YESI:[facility] for a follow upappointment regarding their chronic lower back pain. He states that since thelast visit symptoms have been persistent. The pain is located in the Back areaand does radiate down further down the back. The pain is described as sorenessand is rated as 8 on a scale of 0-10. The patient Reports morning stiffness,leg pain and leg weakness. Symptoms interfere with physical activity. The painis exacerbated by sitting. The pain is mitigated by medications and heat. Thepatient notes no improvement from the previous procedure.He is currently receiving medications through the [facility]. He is having difficultywith his [facility] medications. The medications are ineffective and causing himstomach problems. The patient states the last dose of .mobic was taken over 1 months ago.REVIEW OF SYSTEMS:Constitutional:(-) Fever(-) Night Sweats(-) Weight Gain(-) Weight Loss(+) Fatigue Cardiovascular:(-) Chest Pain(-) Palpitations(-) Lightheadedness(+) Swelling of Ankles(-) Hx Heart SurgeryRespiratory:(-) Shortness of Breath(-) Cough(-) Wheezing(+) Snoring Gastrointestinal:(-) Incontinence(-) Abdominal Pain(-) Diarrhea(-) Constipation(-) Nausea/Vomiting(-) Heart BurnEndocrine:(-) Thyroid Disorder(-) Diabetes Hematologic:(-) Prolonged Bleeding(-) Easy BruisingGenitourinary:(-) Incontinence(-) Frequency(-) Urinary Urgency Skin:(-) Rashes(-) Itching(-) Other LesionsNeurologic:(-) Headache(-) Double Vision(-) Confusion(-) Paralysis Psychiatric:(+) Depression(-) Anxiety(-) Delusions(-) Hallucinations(-) Personal History of Alcohol or Substance Abuse(-) Family History of Alcohol or Substance Abuse No past medical history on file.No past surgical history on file.ALLERGIESAllergen Reactions- Aspirin GI Upset- Codeine Mental Status Change- Oxycontin [Oxycodon* Mental Status Change- Percocet [Oxycodone* GI UpsetCurrent Outpatient Prescriptions:HYDROCODONE/A CETAMINOPHEN (VICODIN ORAL) Take by mouth as needed.tamsulosin ER (FLOMAX) 0.4 mg cp24 Take 0.4 mg by mouth once daily.HYDROCHLOROTHIAZIDE ORAL Take 2 mg by mouth once daily.furosemide (LASIX) 20 mg tablet Take 20 mg by mouth twice daily.meloxicam (MOBIC) 15 mg tablet Take 1 tablet by mouth once daily for 30 days.(Patient not taking: Reported on 01/21/2017)No current facility-administered medications for this visit.I have reviewed the nurses notes and I am aware of the family/social history.Since the last evaluation the medical history has not changed.PHYSICAL EXAMINATION:Vitals: Pulse 66 Ht 5' 7ANDquot; (1.70m) Wt 213 lb (96.6kg) SpO2 96% BMI33.35 kg/(m2).Performed in conjunction with observation.The patient is alert and oriented x3.The patient is in no acute distress.Station and Gait: antalgic gaitLungs: normal respiratory rate and rhythm.Cardiovascular: regular rate.Neck: Supple. The range of motion is intact.Back: Range of motion of the trunk was generally intact.Spine: Diffuse tenderness in the thoracic and lumbar paravertebrals, negativefacet loadingExtremities: no reported edema or erythema.Motor: Exhibits full strength in LE extremities.ASSESSMENT:Pt reports mid to lower back pain. Pt reports sitting for prolonged periods oftime aggravates the pain. Pt uses heating pad to help alleviate the pain. He istaking gabapentin prescribed by the [facility] reports he had [facility] November 2016 at the [facility]. [facility]Pt reports he had side effects from past spine injections years ago-He reportsexcessive eating, felt like an ocean in his ear, affected his driving.Lumbar MRI 2011 shows: multilevel degenerative disc disease, more prominent atL4-L5 and L5-S1.-L4-5 with moderate disc-osteophytic bulging with small right paracentral discextrusion. Bilateral moderate to sever neuroforaminal narrowing. Mild centralcanal stenosis.- L5-S1 With moderate disc-osteophytic bulging. Moderate to severe rightneuroforaminal narrowing. Severe left neuroforminal narrowing. Mikd canalstenosisEncounter Diagnosis ICD-10-CM1. Chronic low back pain with bilateral sciatica, unspecified back painlaterality M54.41 G89.29 M54.422. Thoracic spine pain M54.6OARRS website checked and validated. All prescriptions have been APPROPRIATELYfilled. No suspicious activity was identified.- 01/21/2017 by Missy Renae Agreement reviewed and signed?: N/A on January 21, 2017Urine Panel:No results found for: UQCANN, UQBNZL, RQT4BEI, UQAMPH, UQMAMP, UQBUPRE,UQNORBUP, UQMTHD, UQEDDP, UQTRAM, UQDTRM, UQFNTL, UQNFTL, UQCODE, UQMORP,UQDCDN, UQHCOD, UQOXYC, UQHMOR, UQOXYM, UQCREA, UQPH, UQSPGR, UQOXID, UQSPQThe pain panel was N/APLAN:1. Reviewed Past medical records. Last lumbar MRI was 2011. Results noted inassessment2. Continue to remain active as pain is tolerated3. Consider injections-pt reports he had a reaction from steroids and notinterested in pursuing at this time.4. Follow up in 6 monthsThe treatment plan was discussed with the patient during the office visit andthey verbalized an understanding of it.Matheus Monzon, CHARISSEReferring Provider: SELF [200]Allergies As of Date: 01/21/2017 Noted Allergy ReactionASPIRIN 12/25/2016 8 - GI UpsetCODEINE 12/25/2016 1 - Mental Status ChangeOXYCONTIN (OXYCODONE HCL) 12/25/2016 1 - Mental Status ChangePERCOCET (OXYCODONE-ACETAMINOPHEN) 8 - GI UpsetDate Reviewed: 01/21/2017Reviewed by: Missy Machado Ma - Fully AssessedReason for Visit: Follow Up [171] Cmt: DDDPrimary Visit Diagnosis:Chronic low back pain with bilateral sciatica, unspecified back pain laterality [M54.41, G89.29, M54.42] Other Visit Diagnosis:Thoracic spine pain [M54.6]Prescriptions as of 01/21/2017 Sig: VICODIN ORAL Take by mouth as needed. TAMSULOSIN 0.4 MG CAPSULE Take 0.4 mg by mouth once santana* HYDROCHLOROTHIAZIDE ORAL Take 2 mg by mouth once daily. FUROSEMIDE 20 MG TABLET Take 20 mg by mouth twice santana* MELOXICAM 15 MG TABLET Take 1 tablet by mouth once d* Patient not taking: Reported on 01/21/2017Problem List As Of Date 01/21/2017 Noted Resolved Thoracic spine pain [M54.6] INVALID FOR* Primary osteoarthritis of both knees [M17.0] INVALID FOR* Chronic low back pain with bilateral sciatica [*INVALID FOR* Status:Closed by MATHEUS MONZON on 01/21/17 [facility] PROGRESSon 01-21-2017 PROGRESS HNO ID: [id number] thor: Matheus Key ([facility]) CHARISSE MonzonService: (none)Author Type: Nurse PractitionerType: Progress NotesFiled: 01/21/2017 8:48 AMNote Text:DATE: January 21, 2017Chief Complaint: Back SUBJECT YESI:[facility]. Wynn [facility] for afollow up appointment regarding their chronic lower back pain. He statesthat since the last visit symptoms have been persistent. The pain islocated in the Back area and does radiate down further down the back. Thepain is described as soreness and is rated as 8 on a scale of 0-10. Thepatient Reports morning stiffness, leg pain and leg weakness. Symptomsinterfere with physical activity. The pain is exacerbated by sitting. Thepain is mitigated by medications and heat. The patient notes noimprovement from the previous procedure.He is currently receiving medications through the [facility]. He is havingdifficulty with his [facility] medications. The medications are ineffective andcausing him stomach problems. The patient states the last dose of .mobic was taken over 1 months ago.REVIEW OF SYSTEMS:Constitutional:(-) Fever(-) Night Sweats(-) Weight Gain(-) Weight Loss(+) Fatigue Cardiovascular:(-) Chest Pain(-) Palpitations(-) Lightheadedness(+) Swelling of Ankles(-) Hx Heart SurgeryRespiratory:(-) Shortness of Breath(-) Cough(-) Wheezing(+) Snoring Gastrointestinal:(-) Incontinence(-) Abdominal Pain(-) Diarrhea(-) Constipation(-) Nausea/Vomiting(-) Heart BurnEndocrine:(-) Thyroid Disorder(-) Diabetes Hematologic:(-) Prolonged Bleeding(-) Easy BruisingGenitourinary:(-) Incontinence(-) Frequency(-) Urinary Urgency Skin:(-) Rashes(-) Itching(-) Other LesionsNeurologic:(-) Headache(-) Double Vision(-) Confusion(-) Paralysis Psychiatric:(+) Depression(-) Anxiety(-) Delusions(-) Hallucinations(-) Personal History of Alcohol or Substance Abuse(-) Family History of Alcohol or Substance Abuse No past medical history on file.No past surgical history on file.ALLERGIESAllergen Reactions- Aspirin GI Upset- Codeine Mental Status Change- Oxycontin [Oxycodon* Mental Status Change- Percocet [Oxycodone* GI UpsetCurrent Outpatient Prescriptions:HYDROCODONE/A CETAMINOPHEN (VICODIN ORAL) Take by mouth as needed.tamsulosin ER (FLOMAX) 0.4 mg cp24 Take 0.4 mg by mouth once daily.HYDROCHLOROTHIAZIDE ORAL Take 2 mg by mouth once daily.furosemide (LASIX) 20 mg tablet Take 20 mg by mouth twice daily.meloxicam (MOBIC) 15 mg tablet Take 1 tablet by mouth once daily for 30days. (Patient not taking: Reported on 01/21/2017)No current facility-administered medications for this visit.I have reviewed the nurses notes and I am aware of the family/socialhistory.Since the last evaluation the medical history has not changed.PHYSICAL EXAMINATION:Vitals: Pulse 66 Ht 5' 7 (1.70m) Wt 213 lb (96.6kg) SpO2 96% BMI33.35 kg/(m2).Performed in conjunction with observation.The patient is alert and oriented x3.The patient is in no acute distress.Station and Gait: antalgic gaitLungs: normal respiratory rate and rhythm.Cardiovascular: regular rate.Neck: Supple. The range of motion is intact.Back: Range of motion of the trunk was generally intact.Spine: Diffuse tenderness in the thoracic and lumbar paravertebrals,negative facet loadingExtremities: no reported edema or erythema.Motor: Exhibits full strength in LE extremities.ASSESSMENT:Pt reports mid to lower back pain. Pt reports sitting for prolongedperiods of time aggravates the pain. Pt uses heating pad to help alleviatethe pain. He is taking gabapentin [facility]Pt reports he had side effects from past spine injections years ago-Hereports excessive eating, felt like an ocean in his ear, affected hisdriving.Lumbar MRI 2011 shows: multilevel degenerative disc disease, moreprominent at L4-L5 and L5-S1.-L4-5 with moderate disc-osteophytic bulging with small right paracentraldisc extrusion. Bilateral moderate to sever neuroforaminal narrowing. Mildcentral canal stenosis.- L5-S1 With moderate disc-osteophytic bulging. Moderate to severe rightneuroforaminal narrowing. Severe left neuroforminal narrowing. Mikd canalstenosisEncounter Diagnosis ICD-10-CM1. Chronic low back pain with bilateral sciatica, unspecified back painlaterality M54.41 G89.29 M54.422. Thoracic spine pain M54.6OARRS website checked and validated. All prescriptions have beenAPPROPRIATELY filled. No suspicious activity was identified.- 01/21/2017shantelle Machado MaNlisotic Agreement reviewed and signed?: N/A on January 21, 2017Urine Panel:No results found for: UQCANN, UQBNZL, WFD0KZF, UQAMPH, UQMAMP, UQBUPRE,UQNORBUP, UQMTHD, UQEDDP, UQTRAM, UQDTRM, UQFNTL, UQNFTL, UQCODE, UQMORP,UQDCDN, UQHCOD, UQOXYC, UQHMOR, UQOXYM, UQCREA, UQPH, UQSPGR, UQOXID,UQSPQThe pain panel was N/APLAN:1. Reviewed Past medical records. Last lumbar MRI was 2011. Results notedin assessment2. Continue to remain active as pain is tolerated3. Consider injections-pt reports he had a reaction from steroids and notinterested in pursuing at this time.4. Follow up in 6 monthsThe treatment plan was discussed with the patient during the office visitand they verbalized an understanding of it.Matheus Monzon, CHARISSE Normal [facility] Vital Signs Date Time Vital Sign Value Performing Clinician Facility 05-26-2022 18:19-050 Body height 170.18 cm [facility] Work Phone: 05-26-2022 18:19-0500 Body mass index (BMI) [Ratio] 32.2 kg/m2 [facility] Work Phone: 05-26-2022 18:19-0500 Body temperature 101.1 [degF] [facility] Work Phone: 05-26-2022 18:19-0500 Body weight 93.44 kg [facility] Work Phone: 05-26-2022 18:19-0500 Diastolic blood pressure 85 mm[Hg] [facility] Work Phone: 05-26-2022 18:19-0500 Heart rate 99 /min [facility] Work Phone: 05-26-2022 18:19-0500 Respiratory rate 17 /min [facility] Work Phone: 05-26-2022 18:19-0500 SaO2% (BldA) [Mass fraction] 96 % [facility] Work Phone: 05-26-2022 18:19-0500 Systolic blood pressure 154 mm[Hg] [facility] Work Phone: 02-08-2022 12:14-0400 Body temperature 97.7 [degF] [facility] Work Phone: 02-08-2022 12:14-0400 Diastolic blood pressure 83 mm[Hg] [facility] Work Phone: 02-08-2022 12:14-0400 Heart rate 63 /min [facility] Work Phone: 02-08-2022 12:14-0400 Respiratory rate 16 /min [facility] Work Phone: 02-08-2022 12:14-0400 SaO2% (BldA) [Mass fraction] 100 % [facility] Work Phone: 02-08-2022 12:14-0400 Systolic blood pressure 145 mm[Hg] [facility] Work Phone: 02-08-2022 10:08-0400 Body mass index (BMI) [Ratio] 30.8 kg/m2 [facility] Work Phone: 02-08-2022 10:08-0400 Body weight 89.35 kg [facility] Work Phone: Encounters Encounter Date Encounter Type Care Provider Facility Start: 08-04-2024 End: 08-04-2024 Emergency department patient visit [facility] Facility:[facility] Start: 05-26-2022 End: 05-26-2022 Emergency department patient visit [facility] Start: 02-08-2022 Non-patient / Non-visit [facility] Start: 02-08-2022 End: 02-08-2022 Admission to same day surgery center [facility] Start: 01-21-2017 End: 01-22-2017 Ambulatory MATHEUS Key (DARIO MONZON [facility] Start: 12-25-2016 [facility] Procedures Date Procedure Procedure Detail Performing Clinician Start: 02-08-2022 Colonoscopy [facility] Plan of Treatment Date Care Activity Detail Author Start: 05-26-2022 [facility] Work Phone: Start: 02-08-2022 Patient discharge [facility] Work Phone: Patient referral [facility] Work Phone: Immunizations Immunization Date Immunization Notes Care Provider Quique steele 04-10-2016 influenza, seasonal, injectable [facility] Work Phone: Payers Date Payer Category Payer Self-pay [id number] 2024 Unknown [id number] 1991 Medicare MEDICARE PART A B [id number] Private Health Insurance [facility] [id number] Unknown [id number] Social History Date Type Detail Facility Start: 02-05-2022 Tobacco smoking stat [facility] Unknown if ever smoked [facility] Work Phone: Start: 1945 Sex Assigned At Male [facility] Work Phone: Goals Date Patient Goal Desired Activity /State Mental Status Date Assessment Result Facility 02-08-2022 Cognitive function Voice/Name [facility] Work Phone: Evaluation note Note Date & Type Note Facility Evaluation note No assessment information availa ble [facility] Work Phone: Summary Purpose Family History No Family History Records Found Relationship Condition Age at Onset Recorded Date/T herman sister Malignant neoplasm Unknown uncle Malignant neoplasm Unknown Not Specified Cerebrovascular accident (CVA) Unknown Advance Directives No Advanced Directives Records Found Advance Directive Response Recorded Date/ Time Advance Directives No April 09, 2016 11:39am Living Will No February 05, 2022 1:15pm Power of Landscape Nurseryman No February 05 1:15pm Chief Complaint and Reason for Visit Chief Complaint COUGH Additional Source Comments (unrecognized sect ion and content) No Status Records FoundNo Status Records FoundNo Status Records Found INFORMATION SOURCE (unrecogn ized section and content) DATE CREATED AUTHOR 12/25/2017 [facility] DATE CREATED AUTHOR AUTHOR'S ORGANIZ ATION 12/25/2017 [facility] DATE CREATED AUTHOR AUTHOR'S ORGANIZ ATION 08/21/2024 [facility] FOR RECORDS PERTAINING TO PATIENTS WHO ARE OR HAVE BEEN ENROLLED IN A CHEMICAL DEPENDENCY/SUBSTANCEABUSE PROGRAM, SOME INFORMATION MAY BE OMITTED. This clinical summary was aggregated from multiple sources. Caution should be exercised in using it in the provision of clinical care. This summary normalizes information from multiple sources, and as a consequence, information in this document may materially change the coding, format and clinical context of patient data. In addition, data may be omitted in some cases. CLINICAL DECISIONS SHOULD BE BASED ON THE PRIMARY CLINICAL RECORDS. [employer] provides no warranty or guarantee of the accuracy or completeness of information in this document.
--- NOTE | 2025-04-04 13:09 | EX.ED.DYSGE1 ---
HPI History of Present Illness Chief Complaint: Cold Sx Informant: patient Onset/Context/Timing Onset: Days (8) Context: Gradual Onset Timing: Continuous Quality: Congested Location: Nose and upper respiratory airway Worsened by: Nothing Relieved by: Nothing Narrative Narrative: Patient presents with cough and sinus congestion that has been getting worse over the past 8 days. Patient states he thought this was a viral illness and felt like he would get better. Patient states it has been constant. Patient states nothing makes it better nothing makes it worse. Patient states he is coughing up some yellow sputum. Patient denies any fevers or chills. Patient admits to some generalized weakness. Patient denies any nausea or vomiting. Patient denies any headaches. Patient also admits to some redness to his right eye. Patient admits to some mild matting and crusting from his right eye today. [facility] Medical History Wears glasses Loose, teeth PTSD (post-traumatic stress disorder) Depression Arthritis Restless legs Back pain Sleep apnea Hypertension Home Medications ?Medication ?Instructions ?Recorded ?Last Taken ?Type tamsulosin 0.4 mg capsule 0.4 mg PO DAILY 03/29/16 Unknown History trazodone 100 mg tablet 200 mg PO QHS 09/27/20 Unknown History amlodipine 5 mg tablet 5 mg PO BID 11/21/21 Unknown History fluticasone propionate 50 1 spray intranasal DAILY 11/21/21 Unknown History mcg/actuation nasal spray,suspension (Allergy Relief (fluticasone)) multivitamin 1 tab PO DAILY 11/21/21 Unknown History benzonatate 100 mg capsule 100 mg PO TID PRN cough 5 days #15 08/04/24 Unknown Rx caps Allergy/AdvReac Type Severity Reaction Status Date / Time aspirin Allergy Rash Verified 04/04/25 12:24 chlorhexidine (From AdvReac Rash Verified 04/04/25 12:24 Hibiclens) oxycodone (From OxyContin) AdvReac Other Verified 04/04/25 12:24 Family History Sister Cancer leukemia Uncle Cancer prostate Unknown CVA (cerebral vascular accident) nephew Surgical History History of left knee surgery History of left knee replacement Social History housing: house Smoking Status: Never smoker alcohol intake: never substance use type: does not use ROS ROS ED Constitutional Constitutional ED: Denies chills or fever(s) Eyes Eyes: Denies blurry vision or change in vision ENT ENT ED: Denies rhinorrhea or sore throat Cardiovascular Cardiovascular: Denies chest pain or palpitations Respiratory/Chest Respiratory/Chest: Reports cough; Denies dyspnea Gastrointestinal Gastrointestinal: Denies nausea or vomiting Genitourinary Genitourinary ED: Denies dysuria or hematuria Musculoskeletal Musculoskeletal: Denies back pain or neck pain Integumentary Denies abscess or rash Neurologic Neurologic: Reports weakness; Denies headache(s) Allergic/Immunologic Allergic/Immunologic ED: Denies mouth swelling or urticaria EXAM Physical Exam Const Vital Signs: 04/04/25 12:23 04/04/25 12:27 04/04/25 14:23 Temperature 97.8 F Temperature Source Oral Pulse Rate 96 73 Respiratory Rate 18 Respiratory Effort Normal Non-Labored Respiratory Pattern Normal Blood Pressure 145/79 H 134/80 H Blood Pressure Mean 101 98 Pulse Ox 96 Oxygen Delivery Method Room Air Positive well nourished and well developed Constitutional Narrative: BMI is 32.4. General Appearance ED: well developed and NAD HEENT Reports TM's clear and moist mucous membranes Tympanic Membrane ED: Yes TM's clear bilateral Eyes Eyes Narrative: Conjunctiva was injected on the right. There is no purulent discharge or drainage noted. Neck supple and no JVD Resp normal respiratory effort and clear to auscultation bilaterally Cardio regular rate and regular rhythm GI non-tender and non-distended Palpation: soft Extremity normal to inspection General Extremety ED: Negative for edema or tenderness General Extremity: Negative for edema Neuro oriented x3, CN's II-XII intact bilaterally and no sensory deficits noted Sensorium / Orientation: alert Motor Exam: strength 5/5 throughout Psych mental status grossly normal MDM MDM MDM Narrative Medical decision making narrative: Differential diagnose includes viral upper respiratory infection, sinusitis, pneumonia, bronchitis, and anxiety. Chest x-ray will be obtained to assess for pneumonia and bronchitis. COVID-19, influenza, and RSV PCR will be obtained to assess for viral illness. Lab Data Attestation: I reviewed the patient's lab results. Lab results narrative: COVID-19 PCR was reviewed and was negative. Influenza PCR was reviewed and was negative for influenza A and influenza B. RSV PCR was reviewed and was negative. Radiography Chest X-Ray - ED: 2 View, Read by ED Physician, Read by Radiologist, No Acute Disease and Chronic Changes Diagnostic Testing: Clinical Impression(s) from Imaging Studies Chest X-Ray 04/04/25 13:30 IMPRESSION: No acute cardiopulmonary disease. Stable pleural plaques. Reading Location: [facility] PA and lateral chest x-ray was obtained. There are 2 views. On my independent interpretation, lung ramirez show chronic changes. There is normal cardiac silhouette. Bony thorax is normal. There is no acute process noted. Radiologist also interpreted the x-ray and agrees. Treatment and Re-Evaluation :: Patient was given erythromycin ophthalmic ointment to his right eye. Patient was instructed to apply this 4 times daily. Patient was advised of his findings. Patient was given a prescription for Tessalon Perles. Patient was instructed to drink plenty of fluids. Patient was instructed to take Tylenol or ibuprofen as needed for any fevers. Patient was instructed to follow-up with his primary care physician in 5 to 7 days. Patient was instructed to return if worse in any way. Patient understood and was agreeable with the plan. All questions were answered. Discharge Plan Triage Chief Complaint: Cold Sx ED Provider: Varun Carbajal Dx/Rx/DC Orders Clinical Impression: Viral upper respiratory tract infection with cough, Conjunctivitis Instructions: ED Conjunctivitis, Nonspecific, ED URI, Viral, No Abx (Adult) Prescriptions: No Action amlodipine 5 mg tablet 5 mg PO BID fluticasone propionate [Allergy Relief (fluticasone)] 50 mcg/actuation spray,suspension 1 spray intranasal DAILY Rx Instructions: administer into each nostril multivitamin Tablet 1 tab PO DAILY tamsulosin 0.4 MG capsule 0.4 mg PO DAILY Patient Comments: prostate/urine flow trazodone 100 MG tablet 200 mg PO QHS benzonatate 100 mg capsule 100 mg PO TID PRN (Reason: cough) 5 Days Qty: 15 0RF Primary Care Provider[facility] Referrals: [facility] [Primary Care Provider, None] - 3-5 Days Print Language: Indonesian Disposition Disposition: Home, Self Care
--- NOTE | 2025-04-04 13:30 | RAD_ITS ---
PROCEDURE: CHEST PA AND LATERAL 04/04/2025 REASON FOR EXAM: COUGH TECHNIQUE: Procedure Code: RADCXR Modality: DX Procedure: CHEST PA AND LATERAL COMPARISON: 08/04/2024 FINDINGS: Multiple pleural calcifications identified. The heart and mediastinum are stable. There is atherosclerosis of the aorta. There is no focal consolidation effusion or pneumothorax. Osseous structures are stable. No soft tissue abnormality seen. RAD/Chest PA and Lateral IMPRESSION: No acute cardiopulmonary disease. Stable pleural plaques. Reading Location: [id number]
[2025-04-04 14:23] VITALS: BP 134/80; PULSE 73
[2025-04-04] MEDS: Erythromycin Ophthalmic (NSY) 1 GM OPTH.TUBE 1 APPLIC RIGHT EYE (14:24)
[2025-04-04 15:11] VITALS: BP 170/95; PULSE 78; PULSE 85; RESP 16; RESP 18; TEMP 36.6; O2SAT 96; O2SAT 97
== END 2025-04-04 15:12 | disposition home or self-care (01) ==
PROVIDERS: Emergency Provider Emergency Medicine; Visit Provider Emergency Medicine
DX: J06.9 Acute upper respiratory infection, unspecified (principal); H10.9 Unspecified conjunctivitis; I10 Essential (primary) hypertension; Z79.899 Other long term (current) drug therapy
CPT/HCPCS: 71046; 87631; 99282